=== PATIENT | male | born 1990 ===

== ENCOUNTER 2017-01-26 08:55 | Outpatient (CLI) | payer BC ==
--- NOTE | 2017-01-26 10:54 | Ultrasound Report ---
RIGHT UPPER QUADRANT ABDOMINAL ULTRASOUND: 01/26/17 08:55:00 CLINICAL: Elevated liver enzymes. FINDINGS: High-resolution ultrasound demonstrated a normal size liver with normal overall echogenicity and contour. No liver mass. Normal hepatic vasculature and inferior vena cava. Normal gallbladder and bile ducts. The gall bladder wall measures 2.1 mm in thickness. The common bile duct measures 4.0 mm diameter. The pancreas was well imaged and normal. Normal upper abdominal aorta. The right kidney is normal and measures 9.6 x 4.2 x 4.0cm. No ascites or mass. IMPRESSION: Normal study.
== END 2017-01-26 08:56 | disposition home or self-care (01) ==
LOC: SPVWC 08:55
PROVIDERS: ATTEND Family Medicine Adult Medicine
DX: R94.5 Abnormal results of liver function studies (principal)
CPT/HCPCS: 76705